=== PATIENT | female | born 1980 | race Caucasian/White ===

== ENCOUNTER 2017-03-25 15:27 | Emergency (ER) | payer OTHER ==
[~2017-03-25] VITALS: Ht 165.1 cm; Wt 65.8 kg
[~2017-03-25 15:27] MED LIST: ACET325 PO; Bactrim Ds Tab1 EACH PO; CEPH500 PO; CIPR500 PO; CYCL10 PO; HYDACE10B PO; HYDACE5 PO; IBUP600 PO; IBUP800 PO; KETO10 PO; LORA2 PO; NAPR500 PO; NAPR550 PO; NITR100CA PO; OXYACE5T PO; PENVK500 PO; PHENA100 PO; PHENA200 PO; PROM25 PO; Pyridium200 MG PO; RXCYCL10 PO; RXHYDACE PO; RXLORA1 PO; RXTRAM50 PO; Robaxin500 MG PO; SULTRIDS PO; TRAM50 PO; Ultram50 MG PO
[2017-03-25 16:03] LABS: Source, Urine Clean Catch
[2017-03-25 16:06] LABS: Blood, Urine 5+ (Neg); Glucose Qualitative, Urine Neg (Neg); Ketones, Urine Neg (Neg); Leukocyte Esterase, Urine 3+ (Neg); Nitrite, Urine Pos (Neg); Protein, Urine 2+ (Neg); Urobilinogen, Urine 2+ (Normal)
[2017-03-25 16:11] LABS: Appearance, Urine Hazy (Clear); Bilirubin, Urine 1+ (Neg); Color, Urine Yellow (P-Yellow)
[2017-03-25 16:12] LABS: White Blood Cells, Urine TNTC /hpf (0-5)
[2017-03-25] MEDS ORDERED: AZO URINARY P97.5 MG (16:12)
[2017-03-25] MEDS ORDERED: Cranberry300 MG (16:12)
[2017-03-25 16:13] LABS: Bacteria Mod /hpf; Squamous Epithelial Cells Few /hpf (Few)
[2017-03-25] MEDS ORDERED: Bactrim Ds Tab1 EACH PO (16:43)
== END 2017-03-25 16:55 | disposition home or self-care (01) ==
LOC: ER 15:27
PROVIDERS: Physician Assistant
DX: N39.0 Urinary tract infection, site not specified (principal); Z79.899 Other long term (current) drug therapy; Z87.442 Personal history of urinary calculi; Z98.51 Tubal ligation status; Z87.891 Personal history of nicotine dependence
CPT/HCPCS: 81001; 81025; 87077; 87086; 87186; 99283

== ENCOUNTER → 2019-08-08 | Outpatient (CLI) | payer SELFPAY ==
[~2019-08-08] MED LIST changes: +AZO URINARY P97.5 MG; +Cranberry300 MG
== END | disposition home or self-care (01) ==
LOC: LAB SHORT 19:10 → LAB EV 19:10
DX: N39.0 Urinary tract infection, site not specified (principal)
CPT/HCPCS: 87077; 87086; 87186

== ENCOUNTER → 2020-09-22 | Outpatient (CLI) | payer SELFPAY | LOC: LAB SHORT 08:15 | DX: R87.613 High grade squamous intraepithelial lesion on cytologic smear of cervix (HGSIL) (principal) | CPT/HCPCS: 88305; 88341; 88342 ==

== ENCOUNTER → 2020-12-01 | Outpatient (CLI) | payer SELFPAY | END | disposition home or self-care (01) | LOC: LAB SHORT 09:10 | DX: N39.0 Urinary tract infection, site not specified (principal) | CPT/HCPCS: 87086 ==

== ENCOUNTER → 2021-04-26 | Outpatient (CLI) | payer BC | END | disposition home or self-care (01) | LOC: LAB 17:40 → LAB SHORT 17:40 | DX: R35.0 Frequency of micturition (principal) | CPT/HCPCS: 87086 ==

== ENCOUNTER 2021-10-11 23:15 | Emergency (ER) | payer BC ==
[~2021-10-11] VITALS: Ht 165.1 cm; Wt 54.4 kg
== END 2021-10-11 23:28 | disposition home or self-care (01) ==
LOC: ER 23:15
DX: R22.32 Localized swelling, mass and lump, left upper limb (principal); Z87.891 Personal history of nicotine dependence
CPT/HCPCS: 99282

== ENCOUNTER 2022-01-12 07:04 | Day surgery (SDC) | payer BC ==
[~2022-01-12] VITALS: Ht 165.1 cm; Wt 52.8 kg
[2022-01-12] MEDS ORDERED: AMPDEX10CR (07:44)
[2022-01-12] MEDS ORDERED: ACYC200 (07:45)
[2022-01-12] MEDS ORDERED: AMPDEX30CR (07:45)
--- NOTE | 2022-01-12 13:03 | NUR ---
01/12/22 1303 Emmanuel Carty PT VOIDED PRIOR TO DISCHARGE.
== END 2022-01-12 09:56 | disposition home or self-care (01) ==
LOC: ORSCSDS 07:04
PROVIDERS: Obstetrics & Gynecology
PROC: 0UDB8ZX Extraction of Endometrium, Via Natural or Artificial Opening Endoscopic, Diagnostic (ICD-10-PCS; principal; 2022-01-12 08:15)
DX: N92.0 Excessive and frequent menstruation with regular cycle (principal); D50.0 Iron deficiency anemia secondary to blood loss (chronic); R93.89 Abnormal findings on diagnostic imaging of other specified body structures; Z87.891 Personal history of nicotine dependence; F43.10 Post-traumatic stress disorder, unspecified; G40.909 Epilepsy, unspecified, not intractable, without status epilepticus; Z79.899 Other long term (current) drug therapy
CPT/HCPCS: 88305; A9270; J1100; J1885; J2250; J2405; J2704; J3010; J7120

== ENCOUNTER → 2022-02-04 | Outpatient (CLI) | payer BC ==
[~2022-02-04] MED LIST changes: +ACYC200; +AMPDEX10CR; +AMPDEX30CR
== END | disposition home or self-care (01) ==
LOC: LAB SHORT 17:14 → LAB 17:14
DX: N39.0 Urinary tract infection, site not specified (principal)
CPT/HCPCS: 87077; 87086; 87186

== ENCOUNTER 2022-02-23 06:16 | Day surgery (SDC) | payer BC ==
[~2022-02-23] VITALS: Ht 165.1 cm; Wt 55.4 kg
--- NOTE | 2022-02-23 09:29 | NUR ---
02/23/22 0929 [facility] 0912 PATIENT AMBULATED TO RESTROOM SBA WITH RN AND VOIDED X1. PATIENT VOICED NO CONCERNS WITH VOIDING. ORAL MEDICINE IBUPROFEN GIVEN PER ORDERS PRIOR TO DISCHARGE PATIENT REPORTED PAIN WAS TOLERABLE PRIOR TO DISCHARGE.
== END 2022-02-23 09:17 | disposition home or self-care (01) ==
LOC: ORSCSDS 06:16
PROVIDERS: Obstetrics & Gynecology
PROC: 0U5B8ZZ Destruction of Endometrium, Via Natural or Artificial Opening Endoscopic (ICD-10-PCS; principal; 2022-02-23 07:30)
PROC: 0UDB7ZX Extraction of Endometrium, Via Natural or Artificial Opening, Diagnostic (ICD-10-PCS; principal; 2022-02-23 07:30)
DX: N92.0 Excessive and frequent menstruation with regular cycle (principal); D50.0 Iron deficiency anemia secondary to blood loss (chronic); F90.9 Attention-deficit hyperactivity disorder, unspecified type; B00.9 Herpesviral infection, unspecified; F43.10 Post-traumatic stress disorder, unspecified; Z79.899 Other long term (current) drug therapy
CPT/HCPCS: A9270; J1100; J1885; J2250; J2405; J2704; J3010

== ENCOUNTER 2023-01-23 21:13 | Emergency (ER) | payer BC ==
[~2023-01-23] VITALS: Ht 165.1 cm; Wt 56.7 kg
[2023-01-23 21:35] VITALS: BP 135/97
[2023-01-23 21:55] LABS: Source, Urine Clean Catch
[2023-01-23 22:04] LABS: Blood, Urine 5+ (Neg); Glucose Qualitative, Urine Neg (Neg); Ketones, Urine Neg (Neg); Leukocyte Esterase, Urine 3+ (Neg); Nitrite, Urine Pos (Neg); Protein, Urine 2+ (Neg); Urobilinogen, Urine 2+ (Normal)
[2023-01-23] MEDS ORDERED: Pyridium100 MG PO (22:16)
[2023-01-23] MEDS ORDERED: BACTRIM DS TAB1 EAC1 PO (22:19)
[2023-01-23 22:21] LABS: Appearance, Urine Cloudy (Clear); Bilirubin, Urine 2+ (Neg); Color, Urine Yellow (P-Yellow)
[2023-01-23 22:23] LABS: Bacteria Many /hpf; Red Blood Cells, Urine 50-100 /hpf (0-2); Squamous Epithelial Cells Mod /hpf (Few); White Blood Cells, Urine 25-50 /hpf (0-5)
== END 2023-01-23 22:32 | disposition home or self-care (01) ==
LOC: ER 21:13
PROVIDERS: Student in an Organized Health Care Education/Training Program
DX: N39.0 Urinary tract infection, site not specified (principal); Z79.899 Other long term (current) drug therapy; Z87.891 Personal history of nicotine dependence
CPT/HCPCS: 81001; 87077; 87086; 87186; 99283; A9270

== ENCOUNTER → 2024-11-01 | Outpatient (CLI) | payer BC ==
[~2024-11-01] MED LIST changes: +BACTRIM DS TAB1 EAC1 PO; +Pyridium100 MG PO
== END ==
LOC: LAB 17:03 → LAB SHORT 17:03
DX: N39.0 Urinary tract infection, site not specified (principal)
CPT/HCPCS: 87077; 87086; 87186